=== PATIENT | male | born 1970 | race Caucasian/White ===

== ENCOUNTER 2016-11-16 03:36 | Emergency (ER) | payer OTHER ==
[2016-11-16 03:41] VITALS: TEMP 97.1; O2SAT 92
[2016-11-16 04:16] VITALS: BP 130/74; PULSE 98; RESP 23
== END 2016-11-16 04:10 | disposition home or self-care (01) ==
LOC: ED 03:36
DX: K52.9 Noninfective gastroenteritis and colitis, unspecified (principal)
CPT/HCPCS: 93005; 99282; 99283